=== PATIENT | female | born 1945 | race Caucasian/White ===

== ENCOUNTER 2017-06-17 03:23 | Emergency (ER) | payer OTHER ==
[~2017-06-17] VITALS: Ht 162.6 cm; Wt 117.9 kg
[2017-06-17 05:15] LABS: Basophils # (auto) 0.1 uL; Basophils % (auto) 0.4 % (0.0-2.0); Eosinophils # (auto) 0.2 uL; Eosinophils % (auto) 1.3 % (0.0-7.0); Hematocrit 42.6 % (36.0-46.0); Hemoglobin 14.1 g/dL (12.2-16.2); Lymphocytes # (auto) 1.7 uL; Lymphocytes % (auto) 8.9 % (10.0-50.0); Mean Corpuscular Hemoglobin 30.9 pg (28.0-32.0); Mean Corpuscular Hgb Conc. 33.2 g/dL (32.0-36.0); Mean Corpuscular Volume 93.3 fL (80.0-100.0); Mean Platelet Volume 7.8 fL (6.9-10.8); Monocytes # (auto) 1.1 uL; Monocytes % (auto) 5.5 % (0.0-12.0); Neutrophils # (auto) 16.3 uL; Neutrophils % (auto) 83.9 % (37.0-80.0); Platelet Count (auto) 225 10^3/uL (140-450); Red Cell Distribution Width 16.7 % (11.8-14.3); White Blood Cell 19.4 10^3/uL (4.4-10.8)
[2017-06-17 05:34] LABS: Albumin 3.6 g/dL (3.4-5.0); BUN/Creatinine Ratio 24.2; Calcium 8.9 mg/dL (8.5-10.1); Potassium 3.5 mmol/L (3.5-5.1)
[2017-06-17 05:39] LABS: Bilirubin, Total 0.4 mg/dL (0.2-1.0); Total Protein 7.9 g/dL (6.4-8.2)
[2017-06-17 07:25] LABS: Urine Bilirubin Negative (Negative); Urine Blood 2+ /uL (Negative); Urine Color Yellow (Yellow); Urine Glucose Normal (Normal); Urine Ketone Negative (Negative); Urine Mucus FEW (None Seen); Urine Nitrite Negative (Negative); Urine RBC 3 /hpf (0 - 4); Urine Squamous Epithelial Cell FEW /hpf (<5); Urine Urobilinogen Normal (Negative); Urine pH 5.5 (5.0-8.0)
[2017-06-17] MEDS ORDERED: ASPirin 325 MG TAB PO ONE (09:00)
[2017-06-17] MEDS ORDERED: cefTRIAXone 1GM/50ML D5W 50 ML IV ONE (09:00)
[2017-06-17] MEDS ORDERED: ENOXAPARIN SOD 120 MG/0.8 ML SYRINGE SC ONE (09:00)
[2017-06-17 11:16] VITALS: BP 122/48
== END 2017-06-17 15:11 | disposition home or self-care (01) ==
LOC: EDBD 03:23 → ER 03:28
DX: I24.9 Acute ischemic heart disease, unspecified (principal); R74.8 Abnormal levels of other serum enzymes; E11.9 Type 2 diabetes mellitus without complications; N39.0 Urinary tract infection, site not specified; D72.829 Elevated white blood cell count, unspecified; R41.82 Altered mental status, unspecified; E66.01 Morbid (severe) obesity due to excess calories; Z68.41 Body mass index [BMI] 40.0-44.9, adult; I10 Essential (primary) hypertension; Z95.1 Presence of aortocoronary bypass graft
CPT/HCPCS: 36415; 71010; 80053; 81001; 82962; 84484; 85025; 93005; 96365; 96372; 99285; J0696; J1650